=== PATIENT | female | born 1955 | race Caucasian/White ===

== ENCOUNTER 2017-02-17 06:17 | Day surgery (SDC) | payer BC ==
[~2017-02-17] VITALS: Ht 152.4 cm; Wt 67.0 kg
[2017-02-17] VITALS (10 sets, daily range): BP systolic 121–155; BP diastolic 67–96; PULSE 70–106; RESP 16–22; Ht 152.4 cm; Wt 67.0 kg
[2017-02-17] MEDS ORDERED: ROCURONIUM 50 MG INJ ONE (09:54)
[2017-02-17] MEDS ORDERED: GLYCOPYRROLATE 0.4 MG INJ ONE (09:55)
[2017-02-17] MEDS ORDERED: NEOSTIGMINE 3 MG/3 ML SYRINGE ONE (09:55)
[2017-02-17] MEDS ORDERED: ONDANSETRON 4 MG INJ ONE (09:55)
[2017-02-17] MEDS ORDERED: FENTAnyl 50 MCG/ML VIAL ONE (09:55)
[2017-02-17] MEDS ORDERED: CEFAZOLIN 1 GM INJ ONE (09:55)
[2017-02-17] MEDS ORDERED: PROPOFOL 20 ML ONE (09:55)
[2017-02-17] MEDS ORDERED: DEXAMETHASONE 4 MG/ML 1 ML INJ ONE (09:55)
[2017-02-17] MEDS ORDERED: MIDAZOLAM 1 MG/ML 2 ML INJ ONE (09:55)
[2017-02-17] MEDS ORDERED: SUGAMMADEX SODIUM 200 MG/2 ML VIAL IV ONE (10:23)
[2017-02-17] MEDS ORDERED: hydrALAzine 20 MG INJ IV PRN (10:30)
[2017-02-17] MEDS ORDERED: LABETALOL HCL 20MG INJ IV PRN (10:30)
[2017-02-17] MEDS ORDERED: MIDAZOLAM 1 MG/ML 2 ML INJ IV PRN (10:30)
[2017-02-17] MEDS ORDERED: FENTAnyl 50 MCG/ML VIAL IV PRN ×3 (10:30)
[2017-02-17] MEDS ORDERED: HYDROmorphONE (0.2 MG/ML) 10ML SYG IV PRN ×3 (10:30)
[2017-02-17] MEDS ORDERED: MEPERIDINE 25 MG INJ IV PRN (10:30)
[2017-02-17] MEDS ORDERED: ONDANSETRON 4 MG INJ IV PRN (10:30)
[2017-02-17] MEDS ORDERED: DIPHENHYDRAMINE 50 MG INJ IV PRN (10:30)
[2017-02-17] MEDS ORDERED: TRIMETHOBENZAMIDE 100 MG/ML VIAL IM PRN (10:30)
[2017-02-17] MEDS ORDERED: HYDROCODONE/APAP (7.5/325) TAB PO PRN (10:30)
[2017-02-17] MEDS ORDERED: EPHEDrine SULFATE 50 MG/5 ML SYG IV PRN (10:30)
[2017-02-17] MEDS ORDERED: BUPIVACAINE 0.5%/EPI (SDV) 10 ML INJ INJ ONE (10:40)
--- NOTE | 2017-02-17 10:44 | OPR ---
DATE OF OPERATION: 02/17/2017 PREOPERATIVE DIAGNOSIS: Ductal carcinoma in situ, left breast. POSTOPERATIVE DIAGNOSIS: Ductal carcinoma in situ, left breast. PROCEDURE PERFORMED: Needle-directed left partial mastectomy. SURGEON: Rafa De Anda MD LINOLEUM MECHANIC: Hero Kaur MD ANESTHESIA: General. ANESTHESIOLOGIST: Nir Garcia MD INDICATIONS FOR PROCEDURE: The patient is a 61-year-old female who underwent surveillance mammograp hy and was found to have suspicious microcalcifications in the left breast in the upper outer quadra nt. Subsequently, core biopsy revealed DCIS. The patient was counseled as to the need for complete excision and she consented and was scheduled for surgery. DESCRIPTION OF PROCEDURE: On the morning of surgery, the patient presented to [facility] where she underwent localization of the previously placed biopsy clip performed by attending radiologist, Dr. Betina Son. Subsequently, she was brought to the operating theat er, placed under general anesthesia. The left breast was prepped and draped in the usual sterile fa shion. A curvilinear incision was made in the upper outer quadrant of the left breast in the region of the previously placed localization wire. Subcutaneous tissue was dissected with cautery. The skin edge s were elevated with skin hooks. Wide circumferential dissection of the tissue associated with the wire then took place. Specimen was transected, oriented, and sent for radiographic confirmation of capture. Capture was confirmed. The specimen was then sent for permanent pathologic analysis. The wound was irrigated. Minimal bleeding was controlled with cautery. The skin incision was reapp roximated with a deep dermal layer of 4-0 Vicryl sutures in interrupted fashion, followed by final s kin approximation with 5-0 PDS suture in subcuticular fashion. Benzoin and Steri-Strips were then a pplied. The patient tolerated the procedure well. The estimated blood loss was 10 mL. There were no complications. The patient was transported in stable condition to the recovery room where a circ umferential compression dressing was applied. Dictated By: RAFA MUNOZ/MICHELLE Conf#: [id number] DID#: [id number]
[2017-02-17] MEDS ORDERED: BUPIVACAINE 0.5%/EPI (SDV) 10 ML INJ ONE (10:55)
== END 2017-02-17 13:10 | disposition home or self-care (01) ==
LOC: SDS 06:17
PROVIDERS: ATTEND Surgery Surgical Oncology
DX: D05.12 Intraductal carcinoma in situ of left breast (principal)
CPT/HCPCS: 19301; 88307; J0690; J1100; J2250; J2405; J3010; Z7512; Z7610; J2710